=== PATIENT | male | born 1970 | race Caucasian/White ===

== ENCOUNTER 2018-06-19 10:33 | Emergency (ER) | payer BC ==
[~2018-06-19] VITALS: Ht 172.7 cm; Wt 104.3 kg
--- NOTE | 2018-06-19 12:38 | Diagnostic Imaging Report ---
CT SOFT TISSUE NECK WO HISTORY: Swallowed foreign body COMPARISON: None. TECHNIQUE: Axial CT images were obtained through the neck without intravenous, iodine based contrast. Coronal and sagittal reconstructions obtained from the axial data. One or more of the following dose reduction techniques were used: Automated exposure control, adjustment of the mA and/or kV according to patient size, and/or utilization of iterative reconstruction technique. DISCUSSION: The adenoid, palatine, and lingual tonsils are mildly prominent. Focal mucosal fullness is seen along the left hypopharynx (involving the left aryepiglottic fold and left piriform sinus). The visualized upper aerodigestive tract is otherwise grossly unremarkable. No radiographically significant cervical adenopathy is seen. The thyroid gland is unremarkable. The submandibular and parotid glands are unremarkable. Mild left carotid bulb calcification is present. The explosive operator supervisor, parapharyngeal, posterior cervical, and perivertebral spaces are grossly unremarkable. The visualized intracranial compartment and orbits are grossly unremarkable. The paranasal sinuses are clear. There are mild to moderate degenerative changes throughout the spine. Bilateral calcified hilar and subcarinal lymph nodes are compatible with remote granulomatous disease. A small calcified granuloma is seen in the right upper lobe. IMPRESSION: 1. Focal mucosal fullness along the left hypopharynx (involving the left aryepiglottic fold and left piriform sinus) could be due to focal inflammation. Radiolucent foreign body may be in this region. Recommend correlation with direct visualization/inspection. 2. Otherwise, no radiopaque foreign bodies are seen. 3. Mildly prominent adenoid, palatine, and little tonsils. 4. The visualized upper aerodigestive tract is otherwise grossly unremarkable. Signed by: Dr. Gideon Springer M.D. on 06/19/2018 12:35 PM
== END 2018-06-19 12:51 | disposition left against medical advice (07) ==
LOC: ER 10:33
DX: R09.89 Other specified symptoms and signs involving the circulatory and respiratory systems (principal)
CPT/HCPCS: 70490; 99283

== ENCOUNTER → 2018-07-19 | Day surgery (SDC) | payer BC ==
[~2018-07-19] MED LIST: ESOMEPRAZOLE; FENTANYL CITRATE/PF 100MCG/2 ML INJ ONE; GLUCAGON FOR INJ 1 MG VIAL ONE; HYOSCYAMINE SULFATE 0.5 MG/ML INJ ONE; KETAMINE HCL INJ 50 MG/ML 10 ML VIAL ONE; L THYROXINE; LISINOPRIL-HCT1 EAC1; METOPROLOL SUC100 MG; MIDAZOLAM HCL 2 MG/2 ML VIAL ONE; NAPROXEN250 MG PO; PROPOFOL IV EMULSION 10 MG/ML 50 ML VIAL ONE; ULTRAM50 MG PO; ZOLPIDEM TARTRA10 MG PO
--- OUTSIDE RECORDS SUMMARY | 2018-07-19 09:15 | XMS REPORT ---
[facility] Address Unknown Phone Unavailable Care Team Providers Care Marine Engine Mechanic Name Role Phone Carlie SPENCER Unavailable Unavailable Problems This patient has no known problems. Allergies, Adverse Reactions, Alerts This patient has no known allergies or adverse reactions. Medications This patient has no known medications. Results Test Description Test Time Test Comments Text Results Atomic Results Result Comments CT SOFT TISSUE NECK WO 2018-06-19 12:27:00 [facility] [address] [address] Patient Name: KIMBERLI ZEPEDA MR #: [id number] : 1970 Age/Sex: 48/M Req #: [id number] Adm Physician: Ordered by: PHAN SPENCER MD Report #: [id number] Location: ER Room/Bed: Procedure: [id number] CT/CT SOFT TISSUE NECK WO Exam Date: 06/19/18 Exam Time: 1200 REPORT STATUS: Signed CT SOFT TISSUE NECK WO HISTORY: Swallowed foreign body COMPARISON: None. TECHNIQUE: Axial CT images were obtained through the neck without intravenous, iodine based contrast. Coronal and sagittal reconstructions obtained from the axial data. One or more of the following dose reduction techniques were used: Automated exposure control, adjustment of the mA and/or kV according to patient size, and/or utilization o f iterative reconstruction technique. DISCUSSION: The adenoid, palatine, and lingual tonsils are mildly prominent. Focal mucosal fullness is seen along the left hypopharynx (involving the left aryepiglottic fold and left piriform sinus). The visualized upper aerodigestive tract is otherwise grossly unremarkable. No radiographically significant cervical adenopathy is seen. The thyroid gland is unremarkable. The submandibular and parotid glands are unremarkable. Mild left carotid bulb calcification is present. The roll examiner, parapharyngeal, posterior cervical, and perivertebral spaces are grossly unremarkable. The visualized intracranial compartment and orbits are grossly unremarkable. The paranasal sinuses are clear. There are mild to moderate degenerative changes throughout the spine. Bilateral calcified hilar and subcarinal lymph nodes are compatible with remote granulomatous disease. A small calcified granuloma is seen in the right upper lobe. IMPRESSION: 1. Focal mucosal fullness along the left hypopharynx (involving the left aryepiglottic fold and left piriform sinus) could be due to focal inflammation. Radiolucent foreign body may be in this region. Recommend correlation with direct visualization/inspection. 2. Otherwise, no radiopaque foreign bodies are seen. 3. Mildly prominent adenoid, palatine, and little tonsils. 4. The visualized upper aerodigestive tract is otherwise grossly unremarkable. Signed by: Dr. Gideon Ann M.D. on 06/19/2018 12:35 PM Dictated By: GIDEON ANN MD [id number] Transcribed By: DERRICK on 06/19/18 1235 COPY TO: PHAN SPENCER MD
[2018-07-19 13:54] VITALS: BP 123/77
--- NOTE | 2018-07-19 20:39 | Operative Report ---
DATE OF PROCEDURE: 07/19/2018 SURGEON: Sorin Dejesus MD PROCEDURE: EGD with biopsies and esophageal dilatation and colonoscopy with biopsies and polypectomy. INDICATIONS FOR EGD: Dysphagia, history of dark stools. INDICATIONS FOR COLONOSCOPY: Colorectal cancer screening. MEDICATION: The patient was done under MAC, please see anesthesiologist's note. PROCEDURE IN DETAIL: With the patient in left lateral decubitus position, flexible fiberoptic Olympus gastroscope was introduced into the esophagus under direct visualization without any difficulty. There was some patchy erythema noted in distal esophagus. Minute tongues of velvety red mucosa were noted to extend proximally from the GE junction and biopsies were obtained to rule out Pathak. The scope was then advanced with ease into the stomach traversing a small sliding hiatal hernia. The mucosa overlying the antrum and the body revealed some patchy intense erythema and moderate edema and biopsies were obtained and sent to stain for H pylori. Pylorus was intubated with ease and the scope was advanced all the way to the second portion of the duodenum. Biopsies were obtained from the proximal second portion and duodenal bulb to rule out sprue. The scope was then withdrawn back into the stomach and retroflexed and mucosa overlying the fundus and cardia appeared to be within normal limits. The scope was then straightened out, it was subsequently withdrawn. Th patient tolerated the procedure well. IMPRESSION: 1. Distal esophagitis. 2. Rule out Pathak esophagus. 3. Esophagus dilated to size 52-[place] Fong. 4. Small sliding hiatal hernia. 5. Gastritis, biopsied biopsies sent to stain for H pylori. 6. Rule out sprue. PLAN: Follow up histology. Increase Nexium to 40 mg one p.o. a.c. b.i.d. The patient was then turned around after adequate lubrication of the anal canal. The flexible fiberoptic Olympus colonoscope was inserted into the rectum with ease and advanced all the way to the cecum. The scope was then withdrawn slowly and whatever was visualized of the cecum appeared to be within normal limits. Prep overall was suboptimal with retained stools in the colon, primarily in the right colon. Whatever was visualized of the ascending colon appeared to be within normal limits. Approximately 1 cm ulcer was noted in the proximal transverse colon with somewhat heaped up margins. Biopsies were obtained and site was tattooed. The rest of the transverse, descending, sigmoid appeared to be within normal limits. One polyp was hot biopsied from the distal rectum. The scope was then retroflexed into the distal rectum and small internal hemorrhoids were noted, none of which was actively bleeding. The scope was then straightened out and it was subsequently withdrawn. The patient tolerated the procedure well. IMPRESSION: 1. Suboptimal prep. 2. Approximately 1 cm ulcer proximal transverse colon with somewhat heaped up margins, biopsied and site tattooed. 3. Rectal polyp, hot biopsied. 4. Internal hemorrhoids none actively bleeding. PLAN: Follow up histology. Initiate high-fiber, low-fat diet. Initiate high-fiber supplement. Timing of followup colonoscopy pending pathology report. Sorin Dejesus MD [facility] /[id number] cc: Parish Borja MD
== END | disposition home or self-care (01) ==
LOC: OR 09:13
PROVIDERS: ATTEND Internal Medicine Gastroenterology
DX: K29.70 Gastritis, unspecified, without bleeding (principal); K62.1 Rectal polyp; K52.9 Noninfective gastroenteritis and colitis, unspecified; K21.0 Gastro-esophageal reflux disease with esophagitis; K44.9 Diaphragmatic hernia without obstruction or gangrene; K64.8 Other hemorrhoids; G47.33 Obstructive sleep apnea (adult) (pediatric); I10 Essential (primary) hypertension; E03.9 Hypothyroidism, unspecified; B19.20 Unspecified viral hepatitis C without hepatic coma; K22.8 Other specified diseases of esophagus; Z88.0 Allergy status to penicillin; Z01.810 Encounter for preprocedural cardiovascular examination; Z68.35 Body mass index [BMI] 35.0-35.9, adult
CPT/HCPCS: 43239; 43450; 45380; 45381; 45384; 93005; J1610; J1980; J2250; J2704; 45378

== ENCOUNTER → 2020-02-27 | Outpatient (CLI) | payer BC ==
[~2020-02-27] MED LIST changes: -FENTANYL CITRATE/PF 100MCG/2 ML INJ ONE; -GLUCAGON FOR INJ 1 MG VIAL ONE; -HYOSCYAMINE SULFATE 0.5 MG/ML INJ ONE; -KETAMINE HCL INJ 50 MG/ML 10 ML VIAL ONE; +LEVOTHYROXINE112 MCG PO; -METOPROLOL SUC100 MG; +METOPROLOL SUC100 MG PO; -MIDAZOLAM HCL 2 MG/2 ML VIAL ONE; -PROPOFOL IV EMULSION 10 MG/ML 50 ML VIAL ONE
== END ==
LOC: US 10:03
PROVIDERS: ATTEND Internal Medicine Gastroenterology
DX: Z87.19 Personal history of other diseases of the digestive system (principal)
CPT/HCPCS: 76705

== ENCOUNTER → 2020-03-01 | Day surgery (SDC) | payer BC ==
[~2020-03-01] MED LIST changes: +FENTANYL CITRATE/PF 100MCG/2 ML INJ ONE; +METOCLOPRAMIDE HCL 10 MG/2ML VIAL ONE; +MIDAZOLAM HCL 2 MG/2 ML VIAL ONE; +PANTOPRAZOLE 40 MG 10ML VIAL ONE; +PROPOFOL IV EMULSION 10 MG/ML 20 ML VIAL ONE
--- NOTE | 2020-03-01 07:05 | NUR ---
SPIRITUAL CARE - Pre-Surgery Assessment: Pt in bed. Pt's at bedside. Pt reported supportive attention from family and friends. Intervention: Follow Up Manager provided pastoral presence, hospitality, and sympathetic listening. Acquainted pt with availability of process control board operator while hospitalized. Outcome: Pt expressed appreciation for visit. No need for follow up indicated at this time. ANGEL [facility] Spiritual Care Department O: [phone]
[2020-03-01 08:37] VITALS: BP 139/87
--- NOTE | 2020-03-01 09:14 | Operative Report ---
DATE OF PROCEDURE: 03/01/2020 SURGEON: Sorin Dejesus MD PROCEDURES: Esophagogastroduodenoscopy with biopsies and esophageal dilatation. INDICATIONS FOR PROCEDURE: Dysphagia to solids, postprandial bloating. MEDICATIONS: The patient was done under MAC, please see anesthesiologist's note. PROCEDURE IN DETAIL: With the patient in left lateral decubitus position, flexible fiberoptic Olympus gastroscope was introduced into the esophagus under direct visualization without any difficulty. There was some patchy erythema noted in distal esophagus. A minute tongue of velvety red mucosa was noted to extend proximally from the GE junction. There was a minute ulcer in the tongue and biopsies were obtained. The esophagus was dilated to size 54-[place] Fong. The scope was then advanced with ease into the stomach traversing a small hiatal hernia. Mucosa overlying the antrum and the body revealed some patchy intense erythema low-grade to moderate edema, and biopsies were obtained and sent to stain for H. pylori. There was a small amount of retained undigested food in stomach. Pylorus was intubated with ease and the scope was advanced all the way to the second portion of the duodenum. Biopsies were obtained from the proximal second portion and the duodenal bulb to rule out sprue. The scope was then withdrawn back into the stomach and retroflexed mucosa overlying the fundus and cardia appeared to be within normal limits. The scope was then straightened out, it was subsequently withdrawn. The patient tolerated the procedure well. IMPRESSION: 1. Distal esophagitis, mild. 2. Minute ulcer in a small tongue of velvety red mucosa extending proximally from the GE junction, biopsies obtained. 3. Esophagus dilated to size 54-[place] Fong. 4. Small hiatal hernia. 5. Gastritis, biopsied, biopsies sent to stain for H. pylori. 6. Small amount of retained undigested food in stomach. 7. Rule out sprue. PLAN: Follow up histology. Increase Nexium to 40 mg one p.o. before meals b.i.d. and check celiac panel. Sorin Dejesus MD [facility] [place] /[id number] cc: Parish Borja MD
[2020-03-04 06:11] LABS: ENDOMYSIAL ANTIBODIES, IGA Positive (Negative)
== END | disposition home or self-care (01) ==
LOC: ENDO 06:05
PROVIDERS: ATTEND Internal Medicine Gastroenterology
DX: K29.70 Gastritis, unspecified, without bleeding (principal); K44.9 Diaphragmatic hernia without obstruction or gangrene; K25.9 Gastric ulcer, unspecified as acute or chronic, without hemorrhage or perforation; K29.80 Duodenitis without bleeding; K21.00 Gastro-esophageal reflux disease with esophagitis, without bleeding; R13.19 Other dysphagia; K29.60 Other gastritis without bleeding; Z87.19 Personal history of other diseases of the digestive system; Z68.35 Body mass index [BMI] 35.0-35.9, adult; E03.9 Hypothyroidism, unspecified; G47.33 Obstructive sleep apnea (adult) (pediatric); I10 Essential (primary) hypertension; K58.9 Irritable bowel syndrome, unspecified; Z88.0 Allergy status to penicillin; Z86.010 Personal history of colon polyps; Z01.810 Encounter for preprocedural cardiovascular examination; Z01.812 Encounter for preprocedural laboratory examination; Z20.828 Contact with and (suspected) exposure to other viral communicable diseases
CPT/HCPCS: 43239; 43450; 82784; 83516; 86256; 93005; C9113; J2250; J2704; J2765; J3010; U0002

== ENCOUNTER 2023-11-14 13:55 | Emergency (ER) | payer BC ==
[~2023-11-14] VITALS: Ht 172.7 cm; Wt 98.0 kg
[~2023-11-14 13:55] MED LIST changes: +AMLODIPINE BESY10 MG PO; +DAPSONE25 MG PO; -FENTANYL CITRATE/PF 100MCG/2 ML INJ ONE; -METOCLOPRAMIDE HCL 10 MG/2ML VIAL ONE; -MIDAZOLAM HCL 2 MG/2 ML VIAL ONE; -PANTOPRAZOLE 40 MG 10ML VIAL ONE; -PROPOFOL IV EMULSION 10 MG/ML 20 ML VIAL ONE
[2023-11-14 14:14] VITALS: TEMP 98.9
[2023-11-14 15:13] VITALS: PULSE 98; RESP 16
[2023-11-14] MEDS: ONDANSETRON HCL INJ 2MG/ML 2ML 2 MG/ML VIAL IV STA (15:18)
[2023-11-14] MEDS: SODIUM CHLORIDE 0.9% 1000ML 1,000 ML IV STA (15:18)
[2023-11-14 15:21] LABS: BASOPHILS # (AUTO) 0.1 (0.0-0.1); BASOPHILS % 0.6 % (0.0-1.0); EOSINOPHILS # (AUTO) 0.1 (0.0-0.4); EOSINOPHILS % 1.2 % (0.0-6.0); HEMATOCRIT 47.8 % (38.2-49.6); HEMOGLOBIN 15.4 g/dL (14.0-18.0); LYMPHOCYTES # (AUTO) 0.8 (1.0-3.2); LYMPHOCYTES % 8.1 % (18.0-39.1); MEAN CORPUSCULAR HEMOGLOBIN 28.5 pg (28-32); MEAN CORPUSCULAR HGB CONC 32.2 g/dL (31-35); MEAN CORPUSCULAR VOLUME 88.4 fL (81-99); MONOCYTES # (AUTO) 0.5 (0.2-0.8); MONOCYTES % 4.6 % (4.4-11.3); NEUTROPHILS # (AUTO) 8.4 (2.1-6.9); NEUTROPHILS % 84.8 % (38.7-80.0); PLATELET COUNT 221 x10e3/uL (140-360); RED BLOOD COUNT 5.41 x10e6/uL (4.3-5.7); RED CELL DISTRIBUTION WIDTH 15.6 % (11.7-14.4); WHITE BLOOD COUNT 9.89 x10e3/uL (4.8-10.8)
[2023-11-14 15:26] LABS: BILIRUBIN,URINE NEGATIVE (NEGATIVE); CLARITY,URINE SL CLOUDY (CLEAR); COLOR,URINE YELLOW (YELLOW); GLUCOSE, URINE NEGATIVE (NEGATIVE); KETONES,URINE NEGATIVE (NEGATIVE); LEUKOCYTE ESTERASE ,URINE NEGATIVE (NEGATIVE); NITRITE,URINE NEGATIVE (NEGATIVE); PH,URINE 5.5 (5 - 7); PROTEIN,URINE DIPSTICK NEGATIVE (NEGATIVE); URINE UROBILINOGEN 0.2 mg/dL (0.2 - 1)
[2023-11-14 15:29] LABS: INR 0.83
[2023-11-14 15:30] LABS: PARTIAL THROMBOPLASTIN TIME 24.1 seconds (23.8-35.5)
[2023-11-14 15:39] LABS: ALBUMIN 3.7 g/dL (3.5-5.0); ALBUMIN/GLOBULIN RATIO 1.1 (0.8-2.0); ANION GAP 15.8 mmol/L (8-16); BILIRUBIN,TOTAL 0.7 mg/dL (0.2-1.2); CALCIUM 12.5 mg/dL (8.4-10.2); CREATININE, SERUM 1.96 mg/dL (0.72-1.25); MAGNESIUM 1.6 MG/DL (1.3-2.1); POTASSIUM 3.8 mmol/L (3.5-5.1); TOTAL PROTEIN 7.2 g/dL (6.5-8.1)
[2023-11-14 15:43] LABS: BACTERIA,URINE FEW /HPF
[2023-11-14 15:45] LABS: TROPONIN I 0.049 ng/mL (0-0.300)
[2023-11-14] MEDS ORDERED: IOPAMIDOL 370 MG/ML 100 ML INFUS..BTL INJ ONE (15:55)
[2023-11-14 17:07] LABS: OPIATES SCREEN,URINE NEGATIVE (NEGATIVE)
[2023-11-14 17:08] LABS: AMPHETAMINES SCREEN,URINE NEGATIVE (NEGATIVE); BENZODIAZEPINES SCREEN,URINE NEGATIVE (NEGATIVE); CANNABINOIDS SCREEN,URINE NEGATIVE (NEGATIVE); METHADONE SCREEN, URINE NEGATIVE (NEGATIVE); PHENCYCLIDINE SCREEN,URINE NEGATIVE (NEGATIVE)
[2023-11-14] MEDS ORDERED: ONDANSETRON ODT4 MG PO (18:01)
[2023-11-14 18:44] VITALS: BP 133/84; PULSE 98; RESP 16; TEMP 98.9; O2SAT 97
== END 2023-11-14 18:18 | disposition home or self-care (01) ==
LOC: ER 15:00
DX: R19.7 Diarrhea, unspecified (principal); E86.0 Dehydration; J84.10 Pulmonary fibrosis, unspecified; K02.9 Dental caries, unspecified; I10 Essential (primary) hypertension; E11.9 Type 2 diabetes mellitus without complications; E03.9 Hypothyroidism, unspecified; G47.30 Sleep apnea, unspecified; M54.9 Dorsalgia, unspecified; G89.29 Other chronic pain; Z11.52 Encounter for screening for COVID-19
CPT/HCPCS: 36415; 70450; 70487; 71045; 74177; 80053; 80307; 81001; 82550; 83735; 83880; 84484; 85025; 85610; 85730; 87040; 87086; 93005; 99284; J2405; J2470; J7030; Q9967; U0002

== ENCOUNTER 2024-07-29 18:49 | Inpatient (IN) | payer BC ==
[~2024-07-29] VITALS: Ht 175.3 cm; Wt 99.3 kg
[~2024-07-29 18:49] MED LIST changes: +ONDANSETRON ODT4 MG PO
[2024-07-29 18:50] VITALS: TEMP 98.2
[2024-07-29 19:11] LABS: BASOPHILS # (AUTO) 0.1 (0.0-0.1); BASOPHILS % 0.4 % (0.0-1.0); EOSINOPHILS # (AUTO) 0.2 (0.0-0.4); EOSINOPHILS % 1.5 % (0.0-6.0); HEMATOCRIT 29.9 % (38.2-49.6); HEMOGLOBIN 9.1 g/dL (14.0-18.0); LYMPHOCYTES # (AUTO) 0.6 (1.0-3.2); LYMPHOCYTES % 4.5 % (18.0-39.1); MEAN CORPUSCULAR HGB CONC 30.4 g/dL (31-35); MEAN CORPUSCULAR VOLUME 85.4 fL (81-99); MONOCYTES # (AUTO) 0.7 (0.2-0.8); MONOCYTES % 4.8 % (4.4-11.3); NEUTROPHILS # (AUTO) 11.8 (2.1-6.9); PLATELET COUNT 292 x10e3/uL (140-360); RED CELL DISTRIBUTION WIDTH 16.3 % (11.7-14.4); WHITE BLOOD COUNT 13.52 x10e3/uL (4.8-10.8)
[2024-07-29] MEDS: LEVOFLOXACIN 750MG/D5W 150ML 150 ML IV SCH (19:25)
[2024-07-29] MEDS: SODIUM CHLORIDE 0.9% 1000ML 1,000 ML IV STA (19:25)
[2024-07-29 19:32] LABS: CORONAVIRUS COVID-19 AG NEGATIVE (NEGATIVE); INFLUENZA A AG NEGATIVE (NEGATIVE); INFLUENZA B AG NEGATIVE (NEGATIVE)
[2024-07-29 19:38] LABS: ALBUMIN 2.6 g/dL (3.5-5.0); ALBUMIN/GLOBULIN RATIO 0.7 (0.8-2.0); ANION GAP 17.1 mmol/L (8-16); BILIRUBIN,TOTAL 0.3 mg/dL (0.2-1.2); CALCIUM 8.9 mg/dL (8.4-10.2); CREATININE, SERUM 2.42 mg/dL (0.72-1.25); TOTAL PROTEIN 6.5 g/dL (6.5-8.1)
[2024-07-29 19:39] LABS: POTASSIUM 5.1 mmol/L (3.5-5.1)
[2024-07-29 19:44] LABS: TROPONIN I 0.036 ng/mL (0-0.300)
[2024-07-29 19:58] VITALS: PULSE 88; RESP 22; O2SAT 100
[2024-07-29] MEDS: ALBUTEROL/IPRATROPIUM 3 ML NEB NEB STA (20:11)
[2024-07-29] MEDS: ACETAMINOPHEN 325 MG TAB PO STA (20:16)
[2024-07-29] MEDS: ONDANSETRON HCL INJ 2MG/ML 2ML 2 MG/ML VIAL IV STA (20:16)
[2024-07-29] MEDS: Morphine 4mg INJECTION 4 MG/ML INJ IV STA (20:16)
[2024-07-29 20:32] LABS: BILIRUBIN,URINE NEGATIVE (NEGATIVE); CLARITY,URINE SL CLOUDY (CLEAR); COLOR,URINE AMBER (YELLOW); GLUCOSE, URINE NEGATIVE (NEGATIVE); KETONES,URINE NEGATIVE (NEGATIVE); LEUKOCYTE ESTERASE ,URINE NEGATIVE (NEGATIVE); NITRITE,URINE NEGATIVE (NEGATIVE); PH,URINE 6 (5 - 7); PROTEIN,URINE DIPSTICK 1+ (NEGATIVE); URINE UROBILINOGEN 0.2 mg/dL (0.2 - 1)
[2024-07-29 20:36] LABS: AMPHETAMINES SCREEN,URINE NEGATIVE (NEGATIVE); BENZODIAZEPINES SCREEN,URINE NEGATIVE (NEGATIVE); CANNABINOIDS SCREEN,URINE NEGATIVE (NEGATIVE); COCAINE SCREEN,URINE NEGATIVE (NEGATIVE); METHADONE SCREEN, URINE NEGATIVE (NEGATIVE); OPIATES SCREEN,URINE POSITIVE (NEGATIVE); PHENCYCLIDINE SCREEN,URINE NEGATIVE (NEGATIVE)
[2024-07-29 20:46] LABS: BACTERIA,URINE MODERATE /HPF; RBC,URINE 0-5 /HPF (0-5)
[2024-07-29] MEDS ORDERED: IOPAMIDOL 370 MG/ML 100 ML INFUS..BTL INJ ONE (21:34)
[2024-07-29] MEDS: SODIUM CHLORIDE 0.9% 1000ML 1,000 ML IV SCH (22:53)
[2024-07-29] MEDS: Morphine 4mg INJECTION 4 MG/ML INJ IV PRN (22:54)
[2024-07-29 23:00] VITALS: PULSE 90; RESP 20
[2024-07-29 23:22] VITALS: BP 164/73; PULSE 93; RESP 22; TEMP 98.6; O2SAT 99
[2024-07-29 23:30] VITALS: BP 164/73; PULSE 93; RESP 22; TEMP 98.6; O2SAT 99
[2024-07-29 23:45] VITALS: PULSE 89; RESP 18; O2SAT 99
[2024-07-30] VITALS (27 sets, daily range): BP systolic 112–176; BP diastolic 63–132; PULSE 76–103; RESP 10–24; TEMP 98–98.7; O2SAT 93–100
[2024-07-30 07:04] LABS: BASOPHILS # (AUTO) 0.1 (0.0-0.1); BASOPHILS % 0.5 % (0.0-1.0); EOSINOPHILS # (AUTO) 0.2 (0.0-0.4); EOSINOPHILS % 1.9 % (0.0-6.0); HEMATOCRIT 29.3 % (38.2-49.6); LYMPHOCYTES # (AUTO) 0.7 (1.0-3.2); LYMPHOCYTES % 6.3 % (18.0-39.1); MEAN CORPUSCULAR HEMOGLOBIN 25.9 pg (28-32); MEAN CORPUSCULAR HGB CONC 30.7 g/dL (31-35); MEAN CORPUSCULAR VOLUME 84.2 fL (81-99); MONOCYTES # (AUTO) 0.6 (0.2-0.8); MONOCYTES % 5.7 % (4.4-11.3); NEUTROPHILS # (AUTO) 8.6 (2.1-6.9); NEUTROPHILS % 83.7 % (38.7-80.0); PLATELET COUNT 257 x10e3/uL (140-360); RED BLOOD COUNT 3.48 x10e6/uL (4.3-5.7); RED CELL DISTRIBUTION WIDTH 16.1 % (11.7-14.4); WHITE BLOOD COUNT 10.29 x10e3/uL (4.8-10.8)
[2024-07-30 07:26] LABS: ALBUMIN 2.5 g/dL (3.5-5.0); ALBUMIN/GLOBULIN RATIO 0.6 (0.8-2.0); ANION GAP 16.4 mmol/L (8-16); BILIRUBIN,TOTAL 0.4 mg/dL (0.2-1.2); CALCIUM 8.9 mg/dL (8.4-10.2); CREATININE, SERUM 1.48 mg/dL (0.72-1.25); POTASSIUM 4.4 mmol/L (3.5-5.1); TOTAL PROTEIN 6.4 g/dL (6.5-8.1)
[2024-07-30 07:51] LABS: TROPONIN I 0.117 ng/mL (0-0.300)
[2024-07-30] MEDS: ONDANSETRON HCL INJ 2MG/ML 2ML 2 MG/ML VIAL IV PRN (07:59)
[2024-07-30] MEDS: HYDROMORPHONE 1MG/1ML INJ IV PRN ×2 (08:00→16:20)
[2024-07-30] MEDS ORDERED: LORAZEPAM 0.5 MG TAB PO PRN (10:00)
[2024-07-30] MEDS: AMLODIPINE BESYLATE 10 MG TAB PO SCH (10:22)
[2024-07-30] MEDS: ALPRAZOLAM 0.25 MG TAB PO PRN (10:23)
[2024-07-30] MEDS: ESCITALOPRAM OXALATE 10 MG TAB PO SCH (10:50)
[2024-07-30] MEDS ORDERED: COMBIVENT RESPIM4 GM INH (11:04)
[2024-07-30] MEDS ORDERED: OXYCODONE-ACET1 EAC3 PO (11:04)
[2024-07-30] MEDS ORDERED: MONTELUKAST SOD10 MG PO (11:04)
[2024-07-30] MEDS ORDERED: ESCITALOPRAM OX20 MG PO (11:04)
[2024-07-30] MEDS ORDERED: MIRTAZAPINE45 MG PO (11:04)
[2024-07-30] MEDS ORDERED: FUROSEMIDE20 MG PO (11:04)
[2024-07-30] MEDS ORDERED: TESTOSTERO200 MG/1 M IM (11:04)
[2024-07-30] MEDS ORDERED: HYTRIN1 M1 PO (11:04)
[2024-07-30] MEDS ORDERED: GABAPENTIN300 MG (11:04)
[2024-07-30] MEDS ORDERED: TAMSULOSIN PO (11:24)
[2024-07-30] MEDS ORDERED: TIZANIDINE HCL4 MG PO (11:24)
[2024-07-30] MEDS ORDERED: HYDROCODON-ACE1 EAC9 PO (11:24)
[2024-07-30] MEDS ORDERED: AZELASTINE137 MCG/0. (11:24)
[2024-07-30] MEDS: LEVOTHYROXINE PO SCH (14:29)
[2024-07-30] MEDS ORDERED: ONDANSETRON HCL 4 MG ORAL DISINTEGRATING TAB PO PRN (15:15)
[2024-07-30] MEDS: GABAPENTIN 300 MG CAP PO SCH (16:27)
[2024-07-30 17:00] LABS: TROPONIN I 0.068 ng/mL (0-0.300)
[2024-07-30] MEDS ORDERED: HYDROMORPHONE 2MG/ML IV PRN (17:00)
[2024-07-30] MEDS: TIZANIDINE HCL 4 MG TAB PO PRN (17:02)
[2024-07-30] MEDS: CLONAZEPAM 1 MG TAB PO SCH (20:02)
[2024-07-30] MEDS ORDERED: ZOLPIDEM TARTRATE 10 MG TAB PO PRN (21:00)
[2024-07-31] VITALS (38 sets, daily range): BP systolic 112–163; BP diastolic 53–101; PULSE 67–96; RESP 8–27; TEMP 98–98.8; O2SAT 91–100
[2024-07-31] MEDS: SODIUM CHLORIDE 0.9% 1000ML 1,000 ML ONE (00:14)
[2024-07-31] MEDS: PANTOPRAZOLE SOD 40 MG TABEC PO SCH (07:10)
[2024-07-31 07:12] LABS: BASOPHILS # (AUTO) 0.1 (0.0-0.1); BASOPHILS % 0.8 % (0.0-1.0); EOSINOPHILS # (AUTO) 0.3 (0.0-0.4); EOSINOPHILS % 2.8 % (0.0-6.0); HEMATOCRIT 34.3 % (38.2-49.6); HEMOGLOBIN 10.4 g/dL (14.0-18.0); LYMPHOCYTES # (AUTO) 0.7 (1.0-3.2); LYMPHOCYTES % 8.3 % (18.0-39.1); MEAN CORPUSCULAR HEMOGLOBIN 25.3 pg (28-32); MEAN CORPUSCULAR HGB CONC 30.3 g/dL (31-35); MEAN CORPUSCULAR VOLUME 83.5 fL (81-99); MONOCYTES # (AUTO) 0.6 (0.2-0.8); MONOCYTES % 7.1 % (4.4-11.3); NEUTROPHILS % 78.5 % (38.7-80.0); PLATELET COUNT 307 x10e3/uL (140-360); RED BLOOD COUNT 4.11 x10e6/uL (4.3-5.7); RED CELL DISTRIBUTION WIDTH 16.2 % (11.7-14.4); WHITE BLOOD COUNT 8.89 x10e3/uL (4.8-10.8)
[2024-07-31 07:39] LABS: ANION GAP 15.4 mmol/L (8-16); CALCIUM 9.7 mg/dL (8.4-10.2); CREATININE, SERUM 1.13 mg/dL (0.72-1.25); POTASSIUM 4.4 mmol/L (3.5-5.1)
[2024-07-31] MEDS ORDERED: NON-FORMULARY MEDICATION (Escitalopram Oxalate 20 MG) PO SCH (09:00)
[2024-07-31] MEDS: MONTELUKAST SODIUM 10 MG TAB PO SCH (09:53)
[2024-07-31] MEDS: FUROSEMIDE 20 MG TAB PO SCH (09:54)
[2024-08-01] VITALS (25 sets, daily range): BP systolic 129–180; BP diastolic 64–97; PULSE 65–83; RESP 9–20; TEMP 98–98.6; O2SAT 88–100
[2024-08-01 06:27] LABS: BASOPHILS # (AUTO) 0.1 (0.0-0.1); BASOPHILS % 0.8 % (0.0-1.0); EOSINOPHILS # (AUTO) 0.3 (0.0-0.4); EOSINOPHILS % 3.6 % (0.0-6.0); HEMATOCRIT 34.1 % (38.2-49.6); HEMOGLOBIN 10.1 g/dL (14.0-18.0); LYMPHOCYTES % 11.7 % (18.0-39.1); MEAN CORPUSCULAR HEMOGLOBIN 25.1 pg (28-32); MEAN CORPUSCULAR HGB CONC 29.6 g/dL (31-35); MEAN CORPUSCULAR VOLUME 84.8 fL (81-99); MONOCYTES # (AUTO) 0.6 (0.2-0.8); NEUTROPHILS # (AUTO) 6.2 (2.1-6.9); NEUTROPHILS % 74.6 % (38.7-80.0); PLATELET COUNT 315 x10e3/uL (140-360); RED BLOOD COUNT 4.02 x10e6/uL (4.3-5.7); RED CELL DISTRIBUTION WIDTH 16.2 % (11.7-14.4)
[2024-08-01 06:54] LABS: ALBUMIN 2.4 g/dL (3.5-5.0); ALBUMIN/GLOBULIN RATIO 0.6 (0.8-2.0); ANION GAP 13.5 mmol/L (8-16); BILIRUBIN,TOTAL 0.4 mg/dL (0.2-1.2); CALCIUM 9.8 mg/dL (8.4-10.2); CREATININE, SERUM 1.18 mg/dL (0.72-1.25); POTASSIUM 4.5 mmol/L (3.5-5.1); TOTAL PROTEIN 6.2 g/dL (6.5-8.1)
[2024-08-01] MEDS: HYDROMORPHONE 1MG/1ML INJ IV ONE (08:52)
[2024-08-02] VITALS (12 sets, daily range): BP systolic 119–168; BP diastolic 58–80; PULSE 59–75; RESP 12–18; TEMP 98.1–98.4; O2SAT 75–100
== END 2024-08-02 14:00 | disposition home or self-care (01) | DRG 193 ==
LOC: ER 19:02 → ERHOLD 22:43 → ICU 23:06
PROVIDERS: ADMIT Internal Medicine; ATTEND Internal Medicine
DX: J18.9 Pneumonia, unspecified organism (principal); I50.33 Acute on chronic diastolic (congestive) heart failure; J96.21 Acute and chronic respiratory failure with hypoxia; I13.0 Hypertensive heart and chronic kidney disease with heart failure and stage 1 through stage 4 chronic kidney disease, or unspecified chronic kidney disease; N17.9 Acute kidney failure, unspecified; I27.20 Pulmonary hypertension, unspecified; Z99.81 Dependence on supplemental oxygen; J84.10 Pulmonary fibrosis, unspecified; E11.22 Type 2 diabetes mellitus with diabetic chronic kidney disease; N18.9 Chronic kidney disease, unspecified; E03.9 Hypothyroidism, unspecified; I35.8 Other nonrheumatic aortic valve disorders; M54.9 Dorsalgia, unspecified; G47.33 Obstructive sleep apnea (adult) (pediatric); Z11.52 Encounter for screening for COVID-19; U09.9 Post COVID-19 condition, unspecified; Z79.890 Hormone replacement therapy; Z98.1 Arthrodesis status; Z88.0 Allergy status to penicillin; Z87.891 Personal history of nicotine dependence
CPT/HCPCS: 36415; 71045; 71260; 74177; 76770; 78582; 80048; 80053; 80307; 80320; 81001; 82550; 83036; 83605; 83690; 83880; 84443; 84484; 85025; 87040; 87086; 93005; 93306; 94640; 94660; 94799; 99252; 99285; A9540; A9558; J1171; J2270; J2405; J2470; J7030; Q9967

== ENCOUNTER 2025-01-29 10:09 | Inpatient (IN) | payer BC ==
[2025-01-29] VITALS (8 sets, daily range): BP systolic 121–138; BP diastolic 71–80; PULSE 82–92; RESP 16–20; TEMP 98.3–98.6; O2SAT 95–99
[~2025-01-29] VITALS: Ht 175.3 cm; Wt 99.8 kg
[~2025-01-29 10:09] MED LIST changes: +AZELASTINE137 MCG/0.; +COMBIVENT RESPIM4 GM INH; +ESCITALOPRAM OX20 MG PO; +FUROSEMIDE20 MG PO; +GABAPENTIN300 MG; +HYDROCODON-ACE1 EAC9 PO; +HYTRIN1 M1 PO; +MIRTAZAPINE45 MG PO; +MONTELUKAST SOD10 MG PO; +OXYCODONE-ACET1 EAC3 PO; +TAMSULOSIN PO; +TESTOSTERO200 MG/1 M IM; +TIZANIDINE HCL4 MG PO
[2025-01-29] MEDS: SODIUM CHLORIDE 0.9% 1000ML 1,000 ML IV STA ×2 (11:42)
[2025-01-29 11:44] LABS: BASOPHILS % 0.5 % (0.0-1.0); EOSINOPHILS % 1.2 % (0.0-6.0); LYMPHOCYTES % 11.9 % (18.0-39.1); MONOCYTES % 4.9 % (4.4-11.3); NEUTROPHILS % 80.4 % (38.7-80.0); RED CELL DISTRIBUTION WIDTH 20.8 % (11.7-14.4)
[2025-01-29 11:57] LABS: LEUKOCYTE ESTERASE ,URINE NEGATIVE (NEGATIVE); PROTEIN,URINE DIPSTICK NEGATIVE (NEGATIVE)
[2025-01-29 11:58] LABS: AMPHETAMINES SCREEN,URINE NEGATIVE (NEGATIVE); CANNABINOIDS SCREEN,URINE NEGATIVE (NEGATIVE); COCAINE SCREEN,URINE NEGATIVE (NEGATIVE); METHADONE SCREEN, URINE NEGATIVE (NEGATIVE); OPIATES SCREEN,URINE NEGATIVE (NEGATIVE); URINE UROBILINOGEN 0.2 mg/dL (0.2 - 1)
[2025-01-29 12:02] LABS: EPITHELIAL CELLS,URINE FEW /LPF; WBC,URINE (MAN) 0-5 /HPF (0-5)
[2025-01-29 12:05] LABS: INR 0.93
[2025-01-29 12:16] LABS: EST GLOMERULAR FILTRATION RATE 25.0 ML/MIN (>=60)
[2025-01-29] MEDS: INSULIN REGULAR, HUMAN 100 UNIT/1 ML IV ONE (12:58)
[2025-01-29] MEDS ORDERED: ONDANSETRON HCL INJ 2MG/ML 2ML 2 MG/ML VIAL IV PRN (13:00)
[2025-01-29] MEDS ORDERED: INSULIN GLARGINE 100 UNITS/ML VIAL SQ SCH (13:00)
[2025-01-29 13:11] LABS: ABG BASE EXCESS 9.0 mmol/L (-2 - 3); ABG HCO3 33 mmol/L (22-26); ABG OXYGEN SATURATION 96.0 % (95-98); ABG PCO2 52 mmHg (35-45); ABG PH 7.42 (7.35-7.45); ABG PO2 80 mmHg (80-105); ABG TCO2 35
[2025-01-29] MEDS: ONDANSETRON HCL INJ 2MG/ML 2ML 2 MG/ML VIAL IV STA ×2 (13:30→13:52)
[2025-01-29] MEDS: Morphine 4mg INJECTION 4 MG/ML INJ IV STA (13:52)
[2025-01-29] MEDS: SODIUM CHLORIDE 0.9% 1000ML 1,000 ML IV SCH (13:53)
[2025-01-29] MEDS ORDERED: METOPROLOL SUCC50 MG PO (16:07)
[2025-01-29] MEDS ORDERED: DAPSONE25 MG PO (16:23)
[2025-01-29] MEDS ORDERED: DEXTROSE 50% SYRINGE 50 ML IV PRN (17:00)
[2025-01-29] MEDS: INSULIN REGULAR, HUMAN 100 UNIT/1 ML SQ SCH (17:29)
[2025-01-29 18:23] LABS: CHOL/HDL RATIO 21.5 (3.9-4.7)
[2025-01-29] MEDS ORDERED: Morphine 4mg INJECTION 4 MG/ML INJ IV PRN (18:30)
[2025-01-29] MEDS: OXYCODONE/ACETAMINOPHEN 5-325 1 EACH TABLET PO PRN (18:40)
[2025-01-29] MEDS: OXYCODONE HCL IR 5 MG TAB PO PRN (18:43)
[2025-01-29 18:50] LABS: OSMOLALITY,SERUM 297 mOsm/kg (278-305)
[2025-01-29] MEDS: GABAPENTIN 300 MG CAP PO SCH (20:26)
[2025-01-29] MEDS: ZOLPIDEM TARTRATE 10 MG TAB PO SCH (20:26)
[2025-01-29] MEDS: MIRTAZAPINE 15 MG TAB PO SCH (20:27)
[2025-01-29] MEDS: TERAZOSIN HCL 1 MG CAP PO SCH (20:27)
[2025-01-29] MEDS: TIZANIDINE HCL 4 MG TAB PO SCH (20:27)
[2025-01-29 21:03] LABS: EST GLOMERULAR FILTRATION RATE 33.0 ML/MIN (>=60)
[2025-01-29] MEDS: FENOFIBRATE 48 MG TAB PO SCH (22:45)
[2025-01-29] MEDS: ATORVASTATIN 40 MG TAB PO SCH (23:15)
[2025-01-30] VITALS (9 sets, daily range): BP systolic 118–161; BP diastolic 70–86; PULSE 74–92; RESP 17–21; TEMP 97.6–98.6; O2SAT 90–99
[2025-01-30] MEDS: LEVOTHYROXINE SODIUM 25 MCG TABLET PO SCH (05:49)
[2025-01-30] MEDS: LEVOTHYROXINE SODIUM 112 MCG TAB PO SCH (05:49)
[2025-01-30 06:06] LABS: BASOPHILS % 0.7 % (0.0-1.0); EOSINOPHILS % 1.7 % (0.0-6.0); LYMPHOCYTES % 15.9 % (18.0-39.1); MONOCYTES % 3.8 % (4.4-11.3); NEUTROPHILS % 76.9 % (38.7-80.0); RED CELL DISTRIBUTION WIDTH 21.3 % (11.7-14.4)
[2025-01-30 06:58] LABS: EST GLOMERULAR FILTRATION RATE 39.0 ML/MIN (>=60)
[2025-01-30] MEDS: ALBUTEROL/IPRATROPIUM 3 ML NEB INH SCH (07:41)
[2025-01-30 08:58] LABS: CHOL/HDL RATIO 20.9 (3.9-4.7)
[2025-01-30] MEDS ORDERED: IPRATROPIUM BROMIDE 0.02% 2.5 ML NEB INH SCH (09:00)
[2025-01-30] MEDS: TAMSULOSIN HCL 0.4 MG CAP PO SCH (09:25)
[2025-01-30] MEDS: AMLODIPINE BESYLATE 10 MG TAB PO SCH (09:26)
[2025-01-30] MEDS: METOPROLOL SUCCINATE 50 MG TAB XL PO SCH (09:26)
[2025-01-30] MEDS: PANTOPRAZOLE SOD 40 MG TABEC PO SCH (09:27)
[2025-01-30] MEDS: ESCITALOPRAM OXALATE 10 MG TAB PO SCH (09:27)
[2025-01-30] MEDS: INSULIN GLARGINE 100 UNITS/ML VIAL SQ SCH (22:44)
[2025-01-31] VITALS: BP 150/87; PULSE 83; RESP 17; TEMP 98.3; O2SAT 93
[2025-01-31 04:00] VITALS: BP 140/87; PULSE 84; RESP 18; TEMP 98.3; O2SAT 97
[2025-01-31 07:53] VITALS: PULSE 86; RESP 20; O2SAT 96
[2025-01-31 07:55] LABS: BASOPHILS % 0.7 % (0.0-1.0); EOSINOPHILS % 1.3 % (0.0-6.0); LYMPHOCYTES % 16.6 % (18.0-39.1); MONOCYTES % 4.3 % (4.4-11.3); NEUTROPHILS % 76.2 % (38.7-80.0); RED CELL DISTRIBUTION WIDTH 21.6 % (11.7-14.4)
[2025-01-31 08:22] LABS: CHOL/HDL RATIO 18.9 (3.9-4.7); EST GLOMERULAR FILTRATION RATE 59 ML/MIN (>=60)
[2025-01-31 08:26] VITALS: BP 143/86; PULSE 80; RESP 18; TEMP 97.3; O2SAT 94
[2025-01-31 12:01] VITALS: BP 140/87; PULSE 83; RESP 20; TEMP 98.6; O2SAT 94
[2025-01-31] MEDS ORDERED: TRICOR48 MG PO (12:15)
[2025-01-31] MEDS ORDERED: ATORVASTATIN CA40 MG PO (12:15)
[2025-01-31] MEDS ORDERED: ADMELOG SO100 UNIT/1 SC (12:15)
[2025-01-31] MEDS ORDERED: TOUJEO SOL300 UNIT/1 SC (12:15)
[2025-01-31 13:56] VITALS: PULSE 87; RESP 20; O2SAT 98
[2025-02-02 11:18] LABS: ABG BASE EXCESS 9.0 mmol/L (-2 - 3); ABG HCO3 33 mmol/L (22-26); ABG OXYGEN SATURATION 96.0 % (95-98); ABG PCO2 52 mmHg (35-45); ABG PH 7.42 (7.35-7.45); ABG PO2 80 mmHg (80-105); ABG TCO2 35
== END 2025-01-31 14:32 | disposition home or self-care (01) | DRG 637 ==
LOC: ER 11:20 → ERHOLD 12:53 → MED/SURG3 15:30
PROVIDERS: ADMIT Family Medicine Adult Medicine; ATTEND Family Medicine Adult Medicine
DX: E11.65 Type 2 diabetes mellitus with hyperglycemia (principal); J96.21 Acute and chronic respiratory failure with hypoxia; E86.0 Dehydration; J44.9 Chronic obstructive pulmonary disease, unspecified; J84.10 Pulmonary fibrosis, unspecified; U09.9 Post COVID-19 condition, unspecified; Z99.81 Dependence on supplemental oxygen; R53.1 Weakness; I10 Essential (primary) hypertension; E78.2 Mixed hyperlipidemia; K90.0 Celiac disease; E03.9 Hypothyroidism, unspecified; N40.0 Benign prostatic hyperplasia without lower urinary tract symptoms; E29.1 Testicular hypofunction; G89.29 Other chronic pain; M54.9 Dorsalgia, unspecified; F41.9 Anxiety disorder, unspecified; Z79.899 Other long term (current) drug therapy; Z79.1 Long term (current) use of non-steroidal anti-inflammatories (NSAID)
CPT/HCPCS: 36415; 36600; 71045; 80048; 80053; 80061; 80307; 81001; 82550; 82607; 82728; 82805; 82947; 82948; 83036; 83690; 83735; 83880; 84295; 84443; 84484; 84520; 85025; 85610; 85730; 87086; 94799; 99284; J1815; J2270; J2405; J2470; J7030